=== PATIENT | female | born 1955 | race Caucasian/White ===

== ENCOUNTER 2016-07-09 05:25 | Emergency (ER) | payer OTHER ==
[2016-07-09 05:59] VITALS: BP 138/67
== END 2016-07-09 05:59 | disposition home or self-care (01) ==
LOC: ED 05:25
DX: R10.10 Upper abdominal pain, unspecified (principal); E78.00 Pure hypercholesterolemia, unspecified; Z90.49 Acquired absence of other specified parts of digestive tract; Z87.19 Personal history of other diseases of the digestive system

== ENCOUNTER 2017-11-18 21:14 | Emergency (ER) | payer OTHER ==
[~2017-11-18] VITALS: Ht 170.2 cm; Wt 61.2 kg
[2017-11-18 21:34] VITALS: Ht 170.2 cm; Wt 61.2 kg
[2017-11-18 23:51] VITALS: BP 130/68
== END 2017-11-18 23:51 | disposition home or self-care (01) ==
LOC: EDBD 21:14 → ED 21:14
DX: N39.0 Urinary tract infection, site not specified (principal); E78.00 Pure hypercholesterolemia, unspecified
CPT/HCPCS: J0696

== ENCOUNTER 2018-05-08 05:33 | Emergency (ER) | payer OTHER ==
[2018-05-08 05:41] VITALS: BP 143/77; Ht 170.2 cm
== END 2018-05-08 06:07 | disposition home or self-care (01) ==
LOC: ED 05:33
DX: J06.9 Acute upper respiratory infection, unspecified (principal); T78.40XA Allergy, unspecified, initial encounter; E78.00 Pure hypercholesterolemia, unspecified; X58.XXXA Exposure to other specified factors, initial encounter

== ENCOUNTER 2018-06-17 06:45 | Emergency (ER) | payer OTHER ==
[~2018-06-17] VITALS: Ht 170.2 cm; Wt 64.0 kg
[2018-06-17 06:53] VITALS: Ht 170.2 cm; Wt 64.0 kg
[2018-06-17 07:54] VITALS: BP 140/74
== END 2018-06-17 07:54 | disposition home or self-care (01) ==
LOC: ED 06:45
DX: J04.0 Acute laryngitis (principal)

== ENCOUNTER 2019-07-24 16:26 | Emergency (ER) | payer OTHER ==
[~2019-07-24] VITALS: Ht 170.2 cm; Wt 63.0 kg
[2019-07-24 16:31] VITALS: Ht 170.2 cm; Wt 63.0 kg
[2019-07-24 17:03] VITALS: BP 111/91
== END 2019-07-24 17:03 | disposition home or self-care (01) ==
LOC: ED 16:26
DX: S61.212A Laceration without foreign body of right middle finger without damage to nail, initial encounter (principal); W26.0XXA Contact with knife, initial encounter; Y93.89 Activity, other specified; Y92.89 Other specified places as the place of occurrence of the external cause; Y99.8 Other external cause status

== ENCOUNTER 2019-12-06 04:00 | Emergency (ER) | payer OTHER ==
[~2019-12-06] VITALS: Ht 170.2 cm; Wt 63.7 kg
[2019-12-06 04:14] VITALS: Ht 170.2 cm; Wt 63.7 kg
[2019-12-06 05:56] LABS: microscopic required? YES; urine erythrocyte 3+ (NEGATIVE)
[2019-12-06 06:42] VITALS: BP 141/66
== END 2019-12-06 06:41 | disposition home or self-care (01) ==
LOC: ED 04:00
PROVIDERS: Student in an Organized Health Care Education/Training Program
DX: N30.91 Cystitis, unspecified with hematuria (principal); I10 Essential (primary) hypertension; E78.00 Pure hypercholesterolemia, unspecified

== ENCOUNTER 2020-04-26 06:41 | Emergency (ER) | payer OTHER ==
[~2020-04-26] VITALS: Ht 165.1 cm; Wt 59.9 kg
[2020-04-26 07:03] VITALS: BP 159/64; Ht 165.1 cm; Wt 59.9 kg
[2020-04-26 07:52] LABS: BASOPHIL % 0.5 % (0.2-1.3); PLATELET COUNT 285 x10^3mcL (179-408)
[2020-04-26 08:28] LABS: CALCIUM 9.4 mg/dL (8.5-10.1); CARBON DIOXIDE 24.8 mmol/L (21-32); CHLORIDE SERUM 100 mmol/L (98-107); CREATININE SERUM 0.7 mg/dL (0.6-1.0); GFR1 > 60 mL/min; GLUCOSE SERUM 112 mg/dL (74-106); SODIUM SERUM 138 mmol/L (136-145)
[2020-04-26 08:32] LABS: ALBUMIN 3.9 g/dL (3.4-5.0); ALKALINE PHOSPHATASE 87 U/L (46-116); ALT/SGPT 67 U/L (14-59); AST/SGOT 18 U/L (15-37); BILIRUBIN TOTAL 0.4 mg/dL (0.20-1.00); LIPASE 127 IU/L (73-393); TOTAL PROTEIN, SERUM 7.8 g/dL (6.4-8.2)
== END 2020-04-26 09:33 | disposition home or self-care (01) ==
LOC: ED 06:41
PROVIDERS: Emergency Medicine
DX: K29.70 Gastritis, unspecified, without bleeding (principal); E87.6 Hypokalemia; F41.9 Anxiety disorder, unspecified; I10 Essential (primary) hypertension; E78.00 Pure hypercholesterolemia, unspecified

== ENCOUNTER 2020-05-13 11:59 | Emergency (ER) | payer OTHER ==
[~2020-05-13] VITALS: Ht 170.2 cm; Wt 59.9 kg
[2020-05-13 12:14] VITALS: Ht 170.2 cm; Wt 59.9 kg
[2020-05-13 13:00] VITALS: BP 136/66
== END 2020-05-13 13:00 | disposition home or self-care (01) ==
LOC: ED 11:59
DX: K29.70 Gastritis, unspecified, without bleeding (principal); I10 Essential (primary) hypertension